=== PATIENT | male | born 1985 | race Caucasian/White ===

== ENCOUNTER → 2018-01-26 19:31 | Outpatient (CLI) | payer MEDICARE, OTHER, SELFPAY ==
[2018-01-26 20:28] LABS: Amphetamine/Metha Screen,Urine Negative ng/mL (<1000); Barbiturates Screen,Urine Negative ng/mL (<200); Benzodiazepines Screen,Urine Negative ng/mL (<200); Cannabinoid Screen,Urine Positive ng/mL (<50); Cocaine Screen,Urine Negative ng/mL (<300); Methadone Screen,Urine Negative ng/mL (<300); Opiate Screen,Urine Positive ng/mL (<300); Phencyclidine Screen,Urine Negative ng/mL (<25)
== END ==
PROVIDERS: Visit Provider Physician Assistant
DX: M54.2 Cervicalgia (principal)
CPT/HCPCS: 80305

== ENCOUNTER → 2018-05-24 09:01 | Outpatient (POV) | payer MEDICARE, OTHER, SELFPAY | PROVIDERS: Visit Provider Otolaryngology | DX: Z00.00 Encounter for general adult medical examination without abnormal findings (principal) ==

== ENCOUNTER → 2018-07-29 12:54 | Outpatient (CLI) | payer MEDICARE, OTHER, SELFPAY ==
--- NOTE | 2018-07-29 12:57 | MR_ITS ---
MR lumbar spine wo con, MR 3-d myelogram/MRCP HISTORY: Low back pain with right leg pain numbness and tingling ITS.REASON: low back pain ORDERING PHYSICIAN: Onel Luna APRN PATIENT AGE: 32 years Comparison: None TECHNIQUE: Standard multiplanar multiecho sequences are performed without contrast. 3-D MIP and myelographic images are also rendered and reviewed FINDINGS: There is normal alignment. The spinal cord ends at the T12-L1 level. L1-L2: Mild degenerative disc disease. Mild endplate irregularity. L2-L3: Unremarkable. L3-L4: Unremarkable. L4-L5: Mild degenerative disc disease with minimal bulging disc and mild facet and ligamentum flavum hypertrophy with mild bilateral foraminal narrowing. The disc bulges eccentric toward the left. L5-S1: Moderate to severe degenerative disc disease with bulging disc which is somewhat eccentric toward the left with disc osteophyte complex the foraminal regions with severe right-sided foraminal narrowing and moderate foraminal narrowing on the left. On the sagittal images there does appear to be some impingement upon the exiting right L5 nerve root. No extruded herniated disc. No fracture or dislocation. IMPRESSION: 1. L4-L5: Mild degenerative disc disease with minimal bulging disc and mild facet and ligamentum flavum hypertrophy with mild bilateral foraminal narrowing. The disc is eccentric toward the left. 2. L5-S1: Moderate to severe degenerative disc disease with bulging disc which is somewhat eccentric toward the left with disc osteophyte complex the foraminal regions with severe right-sided foraminal narrowing and moderate foraminal narrowing on the left. On the sagittal images there does appear to be some impingement upon the exiting right L5 nerve root. 3. No extruded herniated disc
--- NOTE | 2018-07-29 13:06 | XR_ITS ---
XR orbit bilateral min 4V HISTORY: History of metallic foreign body in the eyes. Clearance for MRI needed ITS.REASON: RULE OUT METAL FOREIGN BODY FOR MRI ORDERING PHYSICIAN: Onel Luna APRN PATIENT AGE: 32 years Comparison: None TECHNIQUE: AP views are obtained of the orbits with the patient looking up and down FINDINGS: No radio opaque foreign bodies evident. IMPRESSION: No radio opaque orbital foreign body identified
== END ==
PROVIDERS: PCP Physician Assistant; Visit Provider Nurse Practitioner Family
DX: M51.16 Intervertebral disc disorders with radiculopathy, lumbar region (principal); M54.5 Low back pain; H05.53 Retained (old) foreign body following penetrating wound of bilateral orbits
CPT/HCPCS: 70200; 72148; 76376

== ENCOUNTER → 2019-10-02 17:53 | Outpatient (CLI) | payer MEDICARE, OTHER, SELFPAY ==
[2019-10-02 19:31] LABS: Basophils # 0.1 K/mm3 (0-0.2); Basophils % 0.5 % (0.1-2.0); Eosinophils # 0.1 K/mm3 (0.0-0.4); Eosinophils % 1.4 % (0.1-12.0); Hematocrit 43.2 % (42.0-52.0); Hemoglobin 14.9 g/dL (14.1-18.0); Lymphocytes # 3.9 K/mm3 (0.7-4.5); Lymphocytes % 38.8 % (10-50); Mean Corpuscular HGB Conc 34.4 g/dL (31.8-35.4); Mean Corpuscular Hemoglobin 27.9 pg (27.0-31.2); Mean Corpuscular Volume 81.2 fl (80-94); Mean Platelet Volume 9.2 fl (7.4-10.4); Monocytes # 0.5 K/mm3 (0.1-1.0); Neutrophils # 5.4 K/mm3 (1.8-7.8); Neutrophils % 54.3 % (37.0-80.0); Platelet Count 378 K/mm3 (142-424); Red Blood Count 5.33 M/mm3 (4.60-6.20); Red Cell Distribution Width 16.3 % (11.5-17.5)
[2019-10-02 20:21] LABS: Chloride 111 mmol/L (98-107); Potassium 4.6 mmoL/L (3.5-5.1); Sodium 142 mmol/L (136-145)
[2019-10-02 20:24] LABS: Alanine Aminotransferase 38 U/L (12-78); Albumin Level 4.5 g/dl (3.5-5.0); Albumin/Globulin Ratio 1.9 (1.1-1.8); Alkaline Phosphatase 67 U/L (38-126); Anion Gap 15.6 mEq/L (5-15); Aspartate Amino Transferase 30 U/L (17-59); Bilirubin,Total 0.3 mg/dl (0.2-1.3); Blood Urea Nitrogen 5 mg/dl (9-20); Carbon Dioxide 20 mmol/L (22.0-30.0); Cholesterol 144 mg/dl (140-200); Estimated Glomerular Filt Rate 97 ml/min (>60); GFR (African American) 118 ML/MIN (>60); Globulin 2.4 g/dL (1.3-3.2); Total Protein,Serum 6.9 g/dl (6.3-8.2); Triglycerides 281 mg/dl (30-150); VLDL Cholesterol 56 mg/dL (0-40)
[2019-10-02 20:25] LABS: Calcium 10.7 mg/dl (8.4-10.2); Chol/HDL Ratio 5.5 (1-3.5); Glucose 94 mg/dl (74-100); HDL Cholesterol 26 mg/dl (40-60)
[2019-10-02 20:36] LABS: Direct LDL Cholesterol 81.06 mg/dL (100-129)
[2019-10-02 20:41] LABS: T4 (Thyroxine) 6.7 ug/dl (5.53-11.0)
[2019-10-02 20:55] LABS: Thyroid Stimulating Hormone 1.85 uIU/mL (0.465-4.68)
[2019-10-02 22:14] LABS: Hemoglobin A1C 5.5 % (4.0-6.0)
== END ==
PROVIDERS: Visit Provider Physician Assistant
DX: E11.9 Type 2 diabetes mellitus without complications (principal); M51.16 Intervertebral disc disorders with radiculopathy, lumbar region; M54.2 Cervicalgia; Z79.84 Long term (current) use of oral hypoglycemic drugs
CPT/HCPCS: 80053; 80061; 83036; 84436; 84443; 85025

== ENCOUNTER → 2020-02-21 17:34 | Outpatient (CLI) | payer MEDICARE, OTHER, SELFPAY ==
[2020-02-21 18:23] LABS: Erythrocyte Sedimentation Rate 3 mm/hr (0-15)
[2020-02-21 18:26] LABS: Basophils # 0.1 K/mm3 (0-0.2); Basophils % 0.7 % (0.1-2.0); Eosinophils # 0.1 K/mm3 (0.0-0.4); Eosinophils % 1.3 % (0.1-12.0); Hematocrit 46.3 % (42.0-52.0); Hemoglobin 15.5 g/dL (14.1-18.0); Lymphocytes # 3.5 K/mm3 (0.7-4.5); Mean Corpuscular HGB Conc 33.5 g/dL (31.8-35.4); Mean Corpuscular Volume 86.6 fl (80-94); Mean Platelet Volume 8.2 fl (7.4-10.4); Monocytes # 0.5 K/mm3 (0.1-1.0); Monocytes % 6.1 % (1.7-9.3); Platelet Count 430 K/mm3 (142-424); Red Blood Count 5.34 M/mm3 (4.60-6.20); Red Cell Distribution Width 14.7 % (11.5-17.5); White Blood Count 8.2 K/mm3 (4.8-10.8)
[2020-02-21 18:32] LABS: Chloride 108 mmol/L (98-107); Sodium 138 mmol/L (136-145)
[2020-02-21 18:33] LABS: Potassium 4.7 mmoL/L (3.5-5.1)
[2020-02-21 18:35] LABS: Alanine Aminotransferase 25 U/L (12-78); Albumin Level 4.7 g/dl (3.5-5.0); Albumin/Globulin Ratio 1.8 (1.1-1.8); Alkaline Phosphatase 60 U/L (38-126); Anion Gap 16.7 mEq/L (5-15); Aspartate Amino Transferase 28 U/L (17-59); Bilirubin,Total 0.4 mg/dl (0.2-1.3); Blood Urea Nitrogen 5 mg/dl (9-20); Calcium 10.3 mg/dl (8.4-10.2); Carbon Dioxide 18 mmol/L (22.0-30.0); Cholesterol 178 mg/dl (140-200); Estimated Glomerular Filt Rate 77 ml/min (>60); GFR (African American) 93 ML/MIN (>60); Globulin 2.6 g/dL (1.3-3.2); Glucose 80 mg/dl (74-100); Total Protein,Serum 7.3 g/dl (6.3-8.2); Triglycerides 313 mg/dl (30-150); VLDL Cholesterol 63 mg/dL (0-40)
[2020-02-21 18:36] LABS: Chol/HDL Ratio 5.6 (1-3.5); HDL Cholesterol 32 mg/dl (40-60)
[2020-02-21 18:42] LABS: C-Reactive Protein 1.8 mg/L (0-4)
[2020-02-21 18:47] LABS: Direct LDL Cholesterol 101.32 mg/dL (100-129)
[2020-02-21 19:01] LABS: Hemoglobin A1C 5.7 % (4.0-6.0)
[2020-02-24 00:19] LABS: RA Latex Turbid. <10.0 IU/mL (0.0-13.9)
[2020-02-26 12:14] LABS: Anti-Centromere B Antibodies <0.2 AI (0.0-0.9); Anti-Jo-1 <0.2 AI (0.0-0.9); Anti-Smith Antibody <0.2 AI (0.0-0.9); Antichromatin Antibodies <0.2 AI (0.0-0.9); Antiscleroderma-70 Antibodies <0.2 AI (0.0-0.9); RNP Antibodies <0.2 AI (0.0-0.9); Sjogren's Anti-SS-A <0.2 AI (0.0-0.9); Sjogren's Anti-SS-B <0.2 AI (0.0-0.9)
[2020-02-26 13:29] LABS: Anti-DNA (DS) Ab Qn <1 IU/mL (0-9)
[2020-02-27 10:23] LABS: Anti-Cyclic Citrullinated Pept 3 units (0-19)
== END ==
PROVIDERS: Visit Provider Physician Assistant
DX: E11.9 Type 2 diabetes mellitus without complications (principal); M54.2 Cervicalgia; Z79.84 Long term (current) use of oral hypoglycemic drugs
CPT/HCPCS: 80053; 80061; 83036; 84443; 85025; 85651; 86140; 86200; 86225; 86235; 86431

== ENCOUNTER → 2020-05-27 15:46 | Outpatient (CLI) | payer MEDICARE, OTHER, SELFPAY ==
[2020-05-27 16:23] LABS: Basophils # 0.1 K/mm3 (0-0.2); Basophils % 0.7 % (0.1-2.0); Eosinophils # 0.1 K/mm3 (0.0-0.4); Eosinophils % 1.2 % (0.1-12.0); Hematocrit 44.6 % (42.0-52.0); Hemoglobin 14.8 g/dL (14.1-18.0); Lymphocytes # 3.8 K/mm3 (0.7-4.5); Lymphocytes % 42.6 % (10-50); Mean Corpuscular HGB Conc 33.3 g/dL (31.8-35.4); Mean Corpuscular Hemoglobin 28.6 pg (27.0-31.2); Mean Corpuscular Volume 85.7 fl (80-94); Mean Platelet Volume 6.9 fl (7.4-10.4); Monocytes # 0.5 K/mm3 (0.1-1.0); Monocytes % 5.6 % (1.7-9.3); Neutrophils # 4.5 K/mm3 (1.8-7.8); Platelet Count 384 K/mm3 (142-424); Red Cell Distribution Width 14.4 % (11.5-17.5); White Blood Count 8.9 K/mm3 (4.8-10.8)
[2020-05-27 16:31] LABS: Hemoglobin A1C 5.4 % (4.0-6.0)
[2020-05-27 17:12] LABS: Alanine Aminotransferase 50 U/L (12-78); Albumin Level 4.7 g/dl (3.5-5.0); Alkaline Phosphatase 73 U/L (38-126); Anion Gap 14.4 mEq/L (5-15); Aspartate Amino Transferase 37 U/L (17-59); Bilirubin,Total 0.3 mg/dl (0.2-1.3); Blood Urea Nitrogen 6 mg/dl (9-20); Calcium 9.9 mg/dl (8.4-10.2); Carbon Dioxide 20 mmol/L (22.0-30.0); Chloride 109 mmol/L (98-107); Chol/HDL Ratio 6.9 (1-3.5); Cholesterol 179 mg/dl (140-200); Estimated Glomerular Filt Rate 86 ml/min (>60); GFR (African American) 103 ML/MIN (>60); Globulin 2.4 g/dL (1.3-3.2); Glucose 95 mg/dl (74-100); HDL Cholesterol 26 mg/dl (40-60); Potassium 4.4 mmoL/L (3.5-5.1); Sodium 139 mmol/L (136-145); Total Protein,Serum 7.1 g/dl (6.3-8.2)
[2020-05-27 17:22] LABS: Direct LDL Cholesterol 90.16 mg/dL (100-129)
[2020-05-27 17:23] LABS: Triglycerides 418 mg/dl (30-150)
[2020-05-27 17:30] LABS: 25-OH Vitamin D, Total 44.9 ng/mL (30-100)
[2020-05-27 17:31] LABS: T4 (Thyroxine) 6.7 ug/dl (5.53-11.0)
[2020-05-27 17:45] LABS: Thyroid Stimulating Hormone 1.81 uIU/mL (0.465-4.68)
[2020-05-27 18:09] LABS: Vitamin B12 > 1000 pg/mL (239-931)
[2020-05-29 17:22] LABS: H. pylori Breath Test Negative (Negative)
== END ==
PROVIDERS: Visit Provider Physician Assistant
DX: E11.9 Type 2 diabetes mellitus without complications (principal); R53.83 Other fatigue; M54.2 Cervicalgia; E55.9 Vitamin D deficiency, unspecified; Z79.84 Long term (current) use of oral hypoglycemic drugs
CPT/HCPCS: 36415; 80053; 80061; 82306; 82607; 83013; 83036; 84436; 84443; 85025

== ENCOUNTER → 2021-01-22 09:43 | Outpatient (CLI) | payer MEDICARE, OTHER, MEDICAID, SELFPAY ==
--- NOTE | 2021-01-22 09:59 | XR_ITS ---
PROCEDURE: XR CHEST PORTABLE CLINICAL HISTORY: COVID OUTPATIENT COMPARISON: CR CXR CHEST(2 VIEWS-NOT PORTABLE) from 01/09/2017 FINDINGS: The cardiomediastinal silhouette and pulmonary vascularity are within normal limits. The lungs are clear without infiltrates, suspicious nodules, or pleural effusions. There is a bone plate along the right clavicle IMPRESSION: No acute findings. Dictated by: Angelo Dumas MD 01/22/2021 11:39 Angelo Dumas MD in [facility] 01/22/2021 11:39
[2021-01-22 11:22] LABS: Basophils # 0.1 K/mm3 (0-0.2); Basophils % 0.7 % (0.1-2.0); Eosinophils # 0.2 K/mm3 (0.0-0.4); Eosinophils % 1.7 % (0.1-12.0); Hematocrit 40.4 % (42.0-52.0); Hemoglobin 13.8 g/dL (14.1-18.0); Lymphocytes # 4.2 K/mm3 (0.7-4.5); Lymphocytes % 41.5 % (10-50); Mean Corpuscular HGB Conc 34.2 g/dL (31.8-35.4); Mean Corpuscular Volume 84.8 fl (80-94); Mean Platelet Volume 8.4 fl (7.4-10.4); Monocytes # 0.7 K/mm3 (0.1-1.0); Monocytes % 6.7 % (1.7-9.3); Neutrophils # 4.9 K/mm3 (1.8-7.8); Neutrophils % 49.3 % (37.0-80.0); Platelet Count 469 K/mm3 (142-424); Red Blood Count 4.76 M/mm3 (4.60-6.20); Red Cell Distribution Width 15.8 % (11.5-17.5)
[2021-01-22 11:37] LABS: Chloride 108 mmol/L (98-107); Potassium 4.3 mmoL/L (3.5-5.1); Sodium 136 mmol/L (136-145)
[2021-01-22 11:40] LABS: Alanine Aminotransferase 25 U/L (12-78); Albumin Level 4.5 g/dl (3.5-5.0); Albumin/Globulin Ratio 1.9 (1.1-1.8); Alkaline Phosphatase 43 U/L (38-126); Anion Gap 14.3 mEq/L (5-15); Aspartate Amino Transferase 36 U/L (17-59); Bilirubin,Total 0.3 mg/dl (0.2-1.3); Blood Urea Nitrogen 18 mg/dl (9-20); Carbon Dioxide 18 mmol/L (22.0-30.0); Cholesterol 164 mg/dl (140-200); Estimated Glomerular Filt Rate 63 ml/min (>60); GFR (African American) 76 ML/MIN (>60); Globulin 2.4 g/dL (1.3-3.2); Total Protein,Serum 6.9 g/dl (6.3-8.2); Triglycerides 295 mg/dl (30-150); VLDL Cholesterol 59 mg/dL (0-40)
[2021-01-22 11:41] LABS: Calcium 9.5 mg/dl (8.4-10.2); Chol/HDL Ratio 8.2 (1-3.5); Glucose 89 mg/dl (74-100); HDL Cholesterol 20 mg/dl (40-60)
[2021-01-22 11:52] LABS: Direct LDL Cholesterol 99.22 mg/dL (100-129)
[2021-01-22 12:11] LABS: Thyroid Stimulating Hormone 3.39 uIU/mL (0.465-4.68)
== END ==
PROVIDERS: Psychiatry & Neurology Psychiatry; PCP Physician Assistant; Visit Provider Physician Assistant
DX: R09.89 Other specified symptoms and signs involving the circulatory and respiratory systems (principal); Z20.822 Contact with and (suspected) exposure to COVID-19; R05.9 Cough, unspecified; F31.9 Bipolar disorder, unspecified; Z79.899 Other long term (current) drug therapy
CPT/HCPCS: 36415; 71045; 80053; 80061; 83036; 84443; 85025; 87275; 87276; C9803; U0003; U0005

== ENCOUNTER → 2021-09-30 07:02 | Outpatient (CLI) | payer MEDICARE, OTHER, MEDICAID, SELFPAY ==
[2021-09-30 19:20] LABS: Basophils # 0.1 K/mm3 (0-0.2); Basophils % 1.4 % (0.1-2.0); Eosinophils # 0.1 K/mm3 (0.0-0.4); Eosinophils % 1.5 % (0.1-12.0); Hematocrit 41.4 % (42.0-52.0); Hemoglobin 12.9 g/dL (14.1-18.0); Lymphocytes # 3.6 K/mm3 (0.7-4.5); Lymphocytes % 45.7 % (10-50); Mean Corpuscular HGB Conc 31.3 g/dL (31.8-35.4); Mean Corpuscular Hemoglobin 29.7 pg (27.0-31.2); Mean Corpuscular Volume 94.9 fl (80-94); Monocytes # 0.5 K/mm3 (0.1-1.0); Monocytes % 6.7 % (1.7-9.3); Neutrophils # 3.6 K/mm3 (1.8-7.8); Neutrophils % 44.7 % (37.0-80.0); Platelet Count 486 K/mm3 (142-424); Red Blood Count 4.36 M/mm3 (4.60-6.20); Red Cell Distribution Width 16.1 % (11.5-17.5)
[2021-09-30 19:46] LABS: Hemoglobin A1C 4.9 % (4.0-6.0)
[2021-09-30 20:09] LABS: Alanine Aminotransferase 29 U/L (12-78); Albumin Level 4.3 g/dl (3.5-5.0); Albumin/Globulin Ratio 1.8 (1.1-1.8); Alkaline Phosphatase 53 U/L (38-126); Anion Gap 11.5 mEq/L (5-15); Aspartate Amino Transferase 43 U/L (17-59); Calcium 9.5 mg/dl (8.4-10.2); Carbon Dioxide 20 mmol/L (22.0-30.0); Chloride 108 mmol/L (98-107); Chol/HDL Ratio 17.6 (1-3.5); Cholesterol 141 mg/dl (140-200); Globulin 2.4 g/dL (1.3-3.2); Glucose 92 mg/dl (74-100); HDL Cholesterol 8 mg/dl (40-60); Potassium 4.5 mmoL/L (3.5-5.1); Sodium 135 mmol/L (136-145); Total Protein,Serum 6.7 g/dl (6.3-8.2); Triglycerides 244 mg/dl (30-150); VLDL Cholesterol 49 mg/dL (0-40)
[2021-09-30 20:11] LABS: Bilirubin,Total < 0.1 mg/dl (0.2-1.3)
[2021-09-30 20:40] LABS: Thyroid Stimulating Hormone 2.43 uIU/mL (0.465-4.68)
[2021-09-30 21:28] LABS: Vitamin B12 > 1000 pg/mL (239-931)
[2021-10-01 16:14] LABS: Blood Urea Nitrogen 11 mg/dl (9-20); Estimated Glomerular Filt Rate 58 ml/min (>60); GFR (African American) 70 ML/MIN (>60)
[2021-10-02 09:45] LABS: Direct LDL Cholesterol 77 mg/dL (100-129)
== END ==
PROVIDERS: PCP Physician Assistant; Visit Provider Physician Assistant
DX: M54.2 Cervicalgia (principal); E11.9 Type 2 diabetes mellitus without complications; Z79.84 Long term (current) use of oral hypoglycemic drugs
CPT/HCPCS: 80053; 80061; 82607; 83036; 84443; 85025

== ENCOUNTER → 2021-11-15 09:27 | Outpatient (CLI) | payer MEDICARE, OTHER, MEDICAID, SELFPAY ==
--- NOTE | 2021-11-15 09:36 | MR_ITS ---
FINAL REPORT TECHNIQUE: 3-D [id number] sequences without contrast CLINICAL HISTORY: Headaches with vision problems FINDINGS: The distal internal carotid arteries are unremarkable. MCAs and ACAs are unremarkable. Basilar artery is widely patent. it lead are intact. No aneurysm is seen. IMPRESSION: Unremarkable MRA head Reviewed, Interpreted and Dictated by Masood Humphrey MD Transcribed by Chalo Gonsales Authenticated and [facility]
--- NOTE | 2021-11-15 09:36 | MR_ITS ---
FINAL REPORT TECHNIQUE: Multiplanar MR without contrast CLINICAL HISTORY: chronic low back pain. hx of spurs. numbness tingling and pain radiates down bilateral extremities. COMPARISON: July 29, 2018 FINDINGS: Sagittal images show normal vertebral height. 3 mm retrolisthesis of L5 on S1. Alignment at the remaining levels is normal. Marrow signal pattern is unremarkable. Epidural lipomatosis. Mild motion artifact. L1-2: Unremarkable L2-3: Unremarkable L3-4: Mild annular disc bulge. L4-5: Mild annular disc bulge. Mild facet arthropathy. L5-S1: Moderate annular disc bulge. Mild facet arthropathy. Severe right and moderate left neural foraminal narrowing, stable. IMPRESSION: Degenerative disc disease as described. No change from prior. Reviewed, Interpreted and Dictated by Masood Humphrey MD Transcribed by Chalo Gonsales Authenticated and [facility]
== END ==
PROVIDERS: PCP Physician Assistant; Visit Provider Physician Assistant
DX: M51.16 Intervertebral disc disorders with radiculopathy, lumbar region (principal); H53.9 Unspecified visual disturbance; R07.9 Chest pain, unspecified
CPT/HCPCS: 70544; 72148; 76376

== ENCOUNTER → 2022-04-27 11:14 | Outpatient (CLI) | payer MEDICARE, OTHER, SELFPAY ==
--- NOTE | 2022-04-27 11:20 | XR_ITS ---
PROCEDURE INFORMATION: Exam: XR Left Foot Exam date and time: 04/27/2022 11:29 AM Age: 36 years old Clinical indication: Pain; Foot; Left; Additional info: Left ankle pain TECHNIQUE: Imaging protocol: Radiologic exam of the left foot. Views: 3 or more views. COMPARISON: No relevant prior studies available. FINDINGS: Bones/joints: No acute fracture or dislocation. Soft tissues: Normal. IMPRESSION: No acute osseous abnormality.
--- NOTE | 2022-04-27 11:20 | XR_ITS ---
PROCEDURE INFORMATION: Exam: XR Left Ankle Exam date and time: 04/27/2022 11:29 AM Age: 36 years old Clinical indication: Pain; Ankle; Left; Additional info: Left ankle pain TECHNIQUE: Imaging protocol: Radiologic exam of the left ankle. Views: 3 or more views. COMPARISON: No relevant prior studies available. FINDINGS: Bones/joints: No acute fracture or malalignment. Ankle mortise is intact. Soft tissues: Unremarkable. IMPRESSION: No acute osseous abnormality.
== END ==
PROVIDERS: PCP Physician Assistant; Visit Provider Physician Assistant
DX: M25.572 Pain in left ankle and joints of left foot (principal)
CPT/HCPCS: 73610; 73630

== ENCOUNTER 2022-04-27 11:47 | Outpatient (RCR) | payer MEDICARE, OTHER, SELFPAY | END 2022-04-27 13:00 | disposition home or self-care (01) | LOC: PT 11:47 | PROVIDERS: Visit Provider Physician Assistant | DX: S93.402A Sprain of unspecified ligament of left ankle, initial encounter (principal) | CPT/HCPCS: 97760 ==

== ENCOUNTER 2023-05-12 18:23 | Outpatient (CLI) | payer MEDICARE, OTHER, SELFPAY ==
[2023-05-12 18:43] LABS: Hemoglobin A1C 5.8 % (4.0-6.0)
[2023-05-12 18:45] LABS: Basophils # 0.1 K/mm3 (0-0.2); Basophils % 0.6 % (0.1-2.0); Eosinophils # 0.1 K/mm3 (0.0-0.4); Eosinophils % 0.5 % (0.1-12.0); Hematocrit 50.3 % (42.0-52.0); Hemoglobin 16.1 g/dL (14.1-18.0); Lymphocytes # 2.1 K/mm3 (0.7-4.5); Lymphocytes % 16.4 % (10-50); Mean Corpuscular HGB Conc 31.9 g/dL (31.8-35.4); Mean Corpuscular Hemoglobin 29.2 pg (27.0-31.2); Mean Corpuscular Volume 91.3 fl (80-94); Monocytes # 0.4 K/mm3 (0.1-1.0); Monocytes % 3.3 % (1.7-9.3); Neutrophils # 10.3 K/mm3 (1.8-7.8); Neutrophils % 79.2 % (37.0-80.0); Platelet Count 498 K/mm3 (142-424); Red Blood Count 5.51 M/mm3 (4.60-6.20); Red Cell Distribution Width 16.3 % (11.5-17.5)
[2023-05-12 18:49] LABS: Alanine Aminotransferase 26 U/L (12-78); Albumin Level 4.7 g/dl (3.5-5.0); Alkaline Phosphatase 55 U/L (38-126); Anion Gap 12.2 mEq/L (5-15); Aspartate Amino Transferase 30 U/L (17-59); Bilirubin,Total 0.4 mg/dl (0.2-1.3); Blood Urea Nitrogen 9 mg/dl (9-20); Calcium 10.1 mg/dl (8.4-10.2); Carbon Dioxide 23 mmol/L (22.0-30.0); Chloride 110 mmol/L (98-107); Chol/HDL Ratio 7.4 (1-3.5); Cholesterol 178 mg/dl (140-200); Estimated Glomerular Filt Rate 68 ml/min (>60); GFR (African American) 82 ML/MIN (>60); Globulin 2.3 g/dL (1.3-3.2); Glucose 93 mg/dl (74-100); HDL Cholesterol 24 mg/dl (40-60); Potassium 4.2 mmoL/L (3.5-5.1); Sodium 141 mmol/L (136-145); Triglycerides 244 mg/dl (30-150); VLDL Cholesterol 49 mg/dL (0-40)
[2023-05-12 19:00] LABS: Direct LDL Cholesterol 105.09 mg/dL (100-129)
[2023-05-12 19:17] LABS: Thyroid Stimulating Hormone 0.78 uIU/mL (0.465-4.68)
[2023-05-12 19:40] LABS: 25-OH Vitamin D, Total 47.3 ng/mL (30-100)
== END 2023-05-12 23:59 ==
LOC: LAB.DROPOF 18:23
PROVIDERS: PCP Physician Assistant; Visit Provider Physician Assistant
DX: E11.9 Type 2 diabetes mellitus without complications (principal); E55.9 Vitamin D deficiency, unspecified; Z68.37 Body mass index [BMI] 37.0-37.9, adult; Z79.84 Long term (current) use of oral hypoglycemic drugs
CPT/HCPCS: 80053; 80061; 82306; 83036; 84443; 85025

== ENCOUNTER 2023-06-17 13:33 | Outpatient (CLI) | payer MEDICARE, OTHER, SELFPAY | END 2023-06-17 23:59 | disposition home or self-care (01) | LOC: LAB.DROPOF 06-18 13:33 | PROVIDERS: PCP Physician Assistant; Visit Provider Physician Assistant | DX: R30.9 Painful micturition, unspecified (principal) | CPT/HCPCS: 87086 ==

== ENCOUNTER 2023-10-05 14:42 | Outpatient (CLI) | payer MEDICARE, OTHER, SELFPAY ==
--- NOTE | 2023-10-05 14:47 | XR_ITS ---
FINAL REPORT CLINICAL HISTORY: cough, rib pain FINDINGS: Two views of the chest were obtained. The heart size and pulmonary vascularity are within normal limits. The mediastinum is normal. No acute pulmonary abnormality is identified. There is no pneumothorax. There are postoperative changes in the right clavicle. IMPRESSION: No active cardiopulmonary disease. Reviewed, Interpreted and Dictated by Sukumar Carvalho III, MD Transcribed by Emily Mares Authenticated and [facility]
--- NOTE | 2023-10-05 14:47 | XR_ITS ---
FINAL REPORT CLINICAL HISTORY: cough, rib pain FINDINGS: RIBS UNILATERAL 2 VIEWS Six views of the left ribs were obtained. There is a left lateral 2nd rib fracture of uncertain age, favor subacute. There is mild irregularity of the left 4th lateral rib, favor subacute. There is also a fracture of the left 6th distal rib, likely acute. IMPRESSION: Fractures as above. Reviewed, Interpreted and Dictated by Sukumar Carvalho III, MD Transcribed by Emily Mares Authenticated and [facility]
== END 2023-10-05 23:59 | disposition home or self-care (01) ==
LOC: RAD 14:43
PROVIDERS: PCP Physician Assistant; Visit Provider Physician Assistant
DX: R05.9 Cough, unspecified (principal); R07.81 Pleurodynia
CPT/HCPCS: 71046; 71100

== ENCOUNTER 2024-07-03 11:07 | Emergency (ER) | payer MEDICARE, OTHER, SELFPAY ==
--- NOTE | 2024-07-03 11:20 | XR_ITS ---
PROCEDURE INFORMATION: Exam: XR Right Hand Exam date and time: 07/03/2024 12:20 PM Age: 38 years old Clinical indication: Pain; Hand; Right; Additional info: Infected wound, right 1st digit TECHNIQUE: Imaging protocol: Radiologic exam of the right hand. Views: 1 or 2 views. COMPARISON: No relevant prior studies available. FINDINGS: Bones/joints: There is mild deformity proximal shaft 4th metacarpal that is longstanding appears secondary to old healed fracture. Remaining osseous structures and joint surfaces are unremarkable. There are no osteolytic or destructive bone changes. No evidence of acute fracture. Soft tissues: There is soft tissue swelling adjacent to the 2nd PIP joint this should be correlated clinically. IMPRESSION: 1. No radiographic evidence of osteomyelitis. 2. Nonspecific soft tissue swelling 2nd PIP joint.
[2024-07-03] MEDS: ONDANSETRON 4MG/2ML VIAL 4 MG IV (11:30)
[2024-07-03 11:31] VITALS: BP 127/71; PULSE 85; RESP 18; TEMP 36.9; O2SAT 98; BMI 25.0
[2024-07-03 11:32] LABS: Basophils # 0.1 K/mm3 (0-0.2); Basophils % 0.8 % (0.1-2.0); Eosinophils # 0.1 Kmm3 (0.0-0.4); Eosinophils % 1.1 % (0.1-12.0); Hematocrit 35.2 % (42.0-52.0); Hemoglobin 12.2 g/dL (14.1-18.0); Immature Granulocytes # 0.03 10^3uL; Immature Granulocytes % 0.3 %; Lymphocytes # 2.6 K/mm3 (0.7-4.5); Lymphocytes % 26.6 % (10-50); Mean Corpuscular HGB Conc 34.7 g/dL (31.8-35.4); Mean Corpuscular Hemoglobin 28.8 pg (27.0-31.2); Mean Corpuscular Volume 83.2 fl (80-94); Mean Platelet Volume 8.6 fl (7.4-10.4); Monocytes # 0.9 K/mm3 (0.1-1.0); Monocytes % 8.8 % (1.7-9.3); Neutrophils # 6.1 K/mm3 (1.8-7.8); Neutrophils % 62.4 % (37.0-80.0); Nucleated Red Blood Cells # 0 10^3/uL; Nucleated Red Blood Cells % 0 %; Platelet Count 320 K/mm3 (142-424); Red Blood Count 4.23 M/mm3 (4.60-6.20); Red Cell Distribution Width 14.1 % (11.5-17.5); Red Cell Distribution Width-SD 42.9 fL; White Blood Count 9.7 K/mm3 (4.8-10.8)
[2024-07-03 11:41] LABS: Albumin Level 3.9 g/dl (3.5-5.0); Chloride 110 mmol/L (98-107)
[2024-07-03 11:42] LABS: Potassium 3.8 mmoL/L (3.5-5.1); Sodium 140 mmol/L (136-145)
[2024-07-03 11:44] LABS: Alanine Aminotransferase 38 U/L (12-78); Anion Gap 8.8 mEq/L (5-15); Aspartate Amino Transferase 34 U/L (17-59); Blood Urea Nitrogen 9 mg/dl (9-20); Carbon Dioxide 25 mmol/L (22.0-30.0); Creatinine Clearance Estimated 144 mL/min (50-200); Estimated Glomerular Filt Rate 108 ml/min (>60); GFR (African American) 131 ML/MIN (>60)
[2024-07-03 11:45] LABS: Albumin/Globulin Ratio 1.7 (1.1-1.8); Alkaline Phosphatase 68 U/L (38-126); Globulin 2.3 g/dL (1.3-3.2); Glucose 119 mg/dl (74-100); Total Protein,Serum 6.2 g/dl (6.3-8.2)
--- NOTE | 2024-07-03 11:47 | [facility].EDGENADL ---
Discharge Plan Disposition Patient Disposition: Home, Self-Care Prescriptions Prescriptions: New cephalexin 500 mg capsule 500 mg PO Q8H 10 Days Qty: 30 0RF sulfamethoxazole-trimethoprim 800-160 mg tablet 1 tab PO BID 10 Days Qty: 20 0RF No Action omega-3 fatty acids [Fish Oil Concentrate] 1,000 mg capsule 1,000 mg PO DAILY haloperidol 10 mg tablet 10 mg PO BID levetiracetam [Keppra] 500 mg tablet 500 mg PO Q12H benztropine 1 mg tablet 1 mg PO BID citalopram 40 mg tablet 40 mg PO DAILY Qty: 90 3RF clonidine HCl 0.2 mg tablet 0.2 mg PO QHS Qty: 90 3RF topiramate [Topamax] 100 mg tablet 200 mg PO DAILY 90 Days Qty: 180 3RF trazodone 150 mg tablet 150 mg PO HS hydroxyzine pamoate 50 mg capsule 100 mg PO meloxicam 15 mg tablet 15 mg PO DAILY Patient Comments: TAKE 1 TABLET BY MOUTH EVERY DAY sulfamethoxazole-trimethoprim [Bactrim DS] 800-160 mg tablet 1 tab PO BID 10 Days Qty: 20 0RF ondansetron 8 mg tablet,disintegrating 8 mg PO Q8H PRN (Reason: nausea and vomiting) Qty: 30 0RF lidocaine [Lidoderm] 5 % adhesive patch,medicated 1 patch topical DAILY Qty: 30 0RF Rx Instructions: leave on most painful area for up to 12 hrs (DME) Accu-Chek Sade Plus test strp Strip See Rx Instructions .ROUTE .MEDSUPPLY Qty: 50 2RF Rx Instructions: As directed (DME) lancets [Accu-Chek Softclix Lancets] Misc See Rx Instructions .ROUTE .MEDSUPPLY Qty: 100 2RF Rx Instructions: As directed esomeprazole magnesium 40 mg capsule,delayed release(DR/EC) See Rx Instructions .ROUTE .COMPLEX Qty: 90 3RF Dose Instruction: TAKE 1 CAPSULE BY MOUTH EVERY DAY Rx Instructions: TAKE 1 CAPSULE BY MOUTH EVERY DAY pregabalin [Lyrica] 75 mg capsule 75 mg PO BID Qty: 60 2RF fluticasone propionate 50 mcg/actuation spray,suspension See Rx Instructions .ROUTE .COMPLEX Qty: 48 3RF Dose Instruction: SPRAY 1 SPRAY INTO EACH NOSTRIL TWICE A DAY Rx Instructions: SPRAY 1 SPRAY INTO EACH NOSTRIL TWICE A DAY cetirizine 10 mg tablet See Rx Instructions .ROUTE .COMPLEX Qty: 90 3RF Dose Instruction: TAKE 1 TABLET BY MOUTH EVERY DAY Rx Instructions: TAKE 1 TABLET BY MOUTH EVERY DAY albuterol sulfate 1.25 mg/3 mL solution for nebulization See Rx Instructions .ROUTE .COMPLEX Qty: 75 4RF Dose Instruction: INHALE THE CONTENTS OF 1 VIAL EVERY 4 HOURS Rx Instructions: INHALE THE CONTENTS OF 1 VIAL EVERY 4 HOURS budesonide-formoterol [Symbicort] 160-4.5 mcg/actuation HFA aerosol inhaler See Rx Instructions .ROUTE .COMPLEX Qty: 10.2 11RF Dose Instruction: INHALE 2 PUFFS BY MOUTH TWICE A DAY Rx Instructions: INHALE 2 PUFFS BY MOUTH TWICE A DAY Linzess 145 mcg capsule See Rx Instructions .ROUTE .COMPLEX Qty: 90 3RF Dose Instruction: TAKE 1 CAPSULE BY MOUTH EVERY DAY Rx Instructions: TAKE 1 CAPSULE BY MOUTH EVERY DAY ropinirole 1 mg tablet See Rx Instructions .ROUTE .COMPLEX Qty: 90 3RF Dose Instruction: TAKE 1 TABLET BY MOUTH EVERY DAY Rx Instructions: TAKE 1 TABLET BY MOUTH EVERY DAY lisinopril 10 mg tablet See Rx Instructions .ROUTE .COMPLEX Qty: 90 3RF Dose Instruction: TAKE 1 TABLET BY MOUTH EVERY DAY Rx Instructions: TAKE 1 TABLET BY MOUTH EVERY DAY fenofibrate nanocrystallized 145 mg tablet See Rx Instructions .ROUTE .COMPLEX Qty: 90 3RF Dose Instruction: TAKE 1 TABLET BY MOUTH EVERY DAY Rx Instructions: TAKE 1 TABLET BY MOUTH EVERY DAY tizanidine 4 mg capsule See Rx Instructions .ROUTE .COMPLEX Qty: 60 0RF Dose Instruction: TAKE 1 CAPSULE BY MOUTH TWICE A DAY NEEDED FOR MUSCLE SPASTICITY Rx Instructions: TAKE 1 CAPSULE BY MOUTH TWICE A DAY NEEDED FOR MUSCLE SPASTICITY omeprazole 40 mg capsule,delayed release(DR/EC) See Rx Instructions .ROUTE .COMPLEX Qty: 90 3RF Dose Instruction: TAKE 1 CAPSULE BY MOUTH ONCE DAILY SWALLOW WHOLE DO NOT CRUSH, CHEW, DISSOLVE, CUT, BREAK Rx Instructions: TAKE 1 CAPSULE BY MOUTH ONCE DAILY SWALLOW WHOLE DO NOT CRUSH, CHEW, DISSOLVE, CUT, BREAK tamsulosin 0.4 mg capsule See Rx Instructions .ROUTE .COMPLEX Qty: 90 0RF Dose Instruction: TAKE 1 CAPSULE BY MOUTH EVERY DAY Rx Instructions: TAKE 1 CAPSULE BY MOUTH EVERY DAY dexlansoprazole 60 mg capsule,biphase delayed releas See Rx Instructions .ROUTE .COMPLEX Qty: 90 3RF Dose Instruction: TAKE 1 CAPSULE BY MOUTH EVERY DAY Rx Instructions: TAKE 1 CAPSULE BY MOUTH EVERY DAY atorvastatin 20 mg tablet See Rx Instructions .ROUTE .COMPLEX Qty: 90 0RF Dose Instruction: TAKE 1 TABLET BY MOUTH EVERY DAY NIGHTLY Rx Instructions: TAKE 1 TABLET BY MOUTH EVERY DAY NIGHTLY promethazine-DM 6.25-15 mg/5 mL syrup 5 ml PO Q6H PRN (Reason: cough) Qty: 180 0RF Mounjaro 5 mg/0.5 mL pen injector See Rx Instructions .ROUTE .COMPLEX Qty: 2 2RF Dose Instruction: INJECT 5 MG SUBCUTANEOUSLY WEEKLY Rx Instructions: INJECT 5 MG SUBCUTANEOUSLY WEEKLY mupirocin calcium 2 % cream 1 applic topical TID Qty: 30 0RF sennosides-docusate sodium [Senna Plus] 8.6-50 mg tablet See Rx Instructions .ROUTE .COMPLEX Qty: 180 3RF Dose Instruction: TAKE 1 TABLET BY MOUTH TWICE A DAY FOR CONSTIPATION Rx Instructions: TAKE 1 TABLET BY MOUTH TWICE A DAY FOR CONSTIPATION tramadol 50 mg tablet 50 mg PO Q8H PRN (Reason: pain) Qty: 30 0RF albuterol sulfate [Ventolin HFA] 90 mcg/actuation HFA aerosol inhaler See Rx Instructions .ROUTE .COMPLEX Qty: 18 11RF Dose Instruction: INHALE 2 PUFFS EVERY 4-6 HOURS NEEDED FOR SHORTNESS OF BREATH OR WHEEZING Rx Instructions: INHALE 2 PUFFS EVERY 4-6 HOURS NEEDED FOR SHORTNESS OF BREATH OR WHEEZING Referrals Follow up/Referrals: Geraldine Reddy PA [Primary Care Provider] - See instructions Activity Restrictions/Add. Instructions Additional Instructions/Restrictions: Take the Bactrim and Keflex for 10 days as prescribed. Follow-up with your primary care physician in 3 days for reassessment. You can take Tylenol and ibuprofen to help with pain. If you develop any new or worsening symptoms, such as fever, increased redness or swelling, inability to move the finger without significant pain, or if you become concerned for your health for any reason, return to the emergency department for evaluation Clinical Impressions Clinical Impression: Wound infection Print Language Print Language: Cambodian Discharge ED Provider: Rob Robin Adult HPI General Chief complaint: Wound/Laceration Stated complaint: AO 06/30/24 R cut on finger. Stitches came out Time Seen by Provider: 07/03/24 11:12 Mode of Arrival: Ambulatory Source of Information: Patient Description of Symptoms (Recalled from ER Triage Doc. by RN): PT WITH LACERATION TO RIGTH INDEX FINGER FROM 06/30. WOUND RED, PAINFUL AND SWOLLEN History of Present Illness HPI narrative: Felix Wagner is a 38y male with a history of type 2 diabetes, GERD who presents to the emergency department for complaints of possible infected wound to his right finger. Patient is here with mom who provides most of the history. She states that he had a retractable knife close up on his right second digit 1.5 weeks ago and was seen at [place] emergency department at that time and they closed it with sutures. Over the last 2 to 3 days, it has become red and swollen and painful. He tried to remove some sutures to help it drain, however this was unsuccessful. He denies any fevers. He is not currently on antibiotics. Related Data Home Medications ?Medication ?Instructions ?Recorded ?Confirmed benztropine 1 mg tablet 1 mg PO BID 04/07/17 10/29/23 haloperidol 10 mg tablet 10 mg PO BID 04/07/17 10/29/23 levetiracetam 500 mg tablet 500 mg PO Q12H 04/07/17 10/29/23 (Keppra) omega-3 fatty acids 1,000 mg 1,000 mg PO DAILY 04/07/17 10/29/23 capsule (Fish Oil Concentrate) hydroxyzine pamoate 50 mg capsule 100 mg PO 04/27/22 10/29/23 trazodone 150 mg tablet 150 mg PO HS 04/27/22 10/29/23 meloxicam 15 mg tablet 15 mg PO DAILY 01/12/23 10/29/23 Previous Rx's ?Medication ?Instructions ?Recorded blood sugar diagnostic (Accu-Chek #50 ea 05/27/20 Sade Plus test strips) lancets (Accu-Chek Softclix #100 ea 05/27/20 Lancets) citalopram 40 mg tablet 40 mg PO DAILY #90 tabs 01/22/21 clonidine HCl 0.2 mg tablet 0.2 mg PO QHS #90 tabs 01/22/21 topiramate 100 mg tablet (Topamax) 200 mg (2 x 100 mg) PO DAILY 90 01/22/21 days #180 tabs esomeprazole magnesium 40 mg See Rx Instructions .Route 06/16/21 capsule,delayed release .COMPLEX #90 caps cetirizine 10 mg tablet See Rx Instructions .Route 09/15/21 .COMPLEX #90 tabs albuterol sulfate 1.25 mg/3 mL See Rx Instructions .Route 11/07/21 solution for nebulization .COMPLEX #75 mL budesonide-formoterol HFA 160 See Rx Instructions .Route 07/06/22 mcg-4.5 mcg/actuation aerosol .COMPLEX #10.2 ea inhaler (Symbicort) linaclotide 145 mcg capsule See Rx Instructions .Route 10/01/22 (Linzess) .COMPLEX #90 caps ropinirole 1 mg tablet See Rx Instructions .Route 04/01/23 .COMPLEX #90 tabs fenofibrate nanocrystallized 145 See Rx Instructions .Route 04/12/23 mg tablet .COMPLEX #90 tabs lisinopril 10 mg tablet See Rx Instructions .Route 04/12/23 .COMPLEX #90 tabs tizanidine 4 mg capsule See Rx Instructions .Route 04/12/23 .COMPLEX #60 caps pregabalin 75 mg capsule (Lyrica) 75 mg PO BID #60 caps 05/12/23 fluticasone propionate 50 See Rx Instructions .Route 06/17/23 mcg/actuation nasal .COMPLEX #48 mL spray,suspension omeprazole 40 mg capsule,delayed See Rx Instructions .Route 07/12/23 release .COMPLEX #90 caps tamsulosin 0.4 mg capsule See Rx Instructions .Route 08/16/23 .COMPLEX #90 caps dexlansoprazole 60 mg See Rx Instructions .Route 08/30/23 capsule,biphase delayed release .COMPLEX #90 caps atorvastatin 20 mg tablet See Rx Instructions .Route 09/20/23 .COMPLEX #90 tabs promethazine-DM 6.25 mg-15 mg/5 mL 5 ml PO Q6H PRN cough #180 mL 10/07/23 oral syrup tirzepatide 5 mg/0.5 mL See Rx Instructions .Route 10/28/23 subcutaneous pen injector .COMPLEX #2 mL (Mounjaro) lidocaine 5 % topical patch 1 patch topical DAILY #30 ea 10/29/23 (Lidoderm) ondansetron 8 mg disintegrating 8 mg PO Q8H PRN nausea and 10/29/23 tablet vomiting #30 tabs sulfamethoxazole 800 1 tab PO BID 10 days #20 tabs 10/29/23 mg-trimethoprim 160 mg tablet (Bactrim DS) Ventolin HFA 90 mcg/actuation See Rx Instructions .Route 11/17/23 aerosol inhaler (albuterol sulfate) .COMPLEX #18 grams mupirocin calcium 2 % topical cream 1 applic topical TID #30 grams 11/17/23 sennosides 8.6 mg-docusate sodium See Rx Instructions .Route 11/17/23 50 mg tablet (Senna Plus) .COMPLEX #180 tabs tramadol 50 mg tablet 50 mg PO Q8H PRN pain #30 tabs 11/17/23 cephalexin 500 mg capsule 500 mg PO Q8H 10 days #30 caps 07/03/24 sulfamethoxazole 800 1 tab PO BID 10 days #20 tabs 07/03/24 mg-trimethoprim 160 mg tablet Allergies Allergy/AdvReac Type Severity Reaction Status Date / Time acetaminophen (From LORTAB) Allergy Unknown NA-NAUSEA/V Verified 10/29/23 14:28 OMITING hydrocodone (From LORTAB) Allergy Unknown NA-NAUSEA/V Verified 10/29/23 14:28 OMITING mushroom (From MUSHROOMS Allergy Unknown I-HIVES Verified 10/29/23 14:28 (FOOD/DRUG)) clindamycin AdvReac Hives Verified 10/29/23 14:28 From MUSHROOMS (FOOD/DRUG) Allergy Unknown I-HIVES Uncoded 10/29/23 14:28 [facility] Disclaimer: The information contained in this section may have been updated after the patient was seen, as this information can be updated by other users. Medical History Chest pain Neck pain GERD (gastroesophageal reflux disease) Diabetes mellitus Type 2 diabetes mellitus Lumbar disc disease with radiculopathy Social History Smoking Status: Current every day smoker tobacco type: cigarettes packs per day: 1 alcohol intake: never substance use type: denies use current occupational status: unemployed Travel in the last 8 weeks?: None Have you lived/traveled outside [place] in past 30 days?: No Contact w/someone who lives/traveled outside US past 30 days?: No Exposure to someone with infectious disease in past 14 days?: No Do you have a fever (greater than 100.4 F or 38 C)?: No Have you tested positive for COVID-19?: No Exposed to someone with COVID-19 in past 14 days?: No Do you have a sore throat?: No Do you have a cough?: No Do you have any weakness?: No Do you have any diarrhea?: No Are you experiencing any unusual bleeding?: No Do you have any muscle aches/pain?: No Do you have any abdominal pain?: No Are you experiencing loss of taste or smell?: No Other Medical History Have you received the Flu Vaccine for this season: No Have you received the Pneumonia Vaccine: No ROS Obtained: Yes Systems reviewed as appropriate & no additional complaints except as documented Physical Exam General General appearance: alert and in no apparent distress Head Head exam: atraumatic Eye Eye exam: Present normal appearance ENT ENT exam: Present normal external ear exam Neck Neck exam: Present full ROM Chest Chest inspection: Present symmetric chest wall rise Respiratory Respiratory exam: Present normal lung sounds bilaterally; Absent respiratory distress Cardiovascular Cardiovascular exam: Present regular rate and normal rhythm Abdominal Exam Abdominal exam: Present soft; Absent tenderness or guarding exam: Present deferred Extremities Exam Extremities exam: Present normal inspection Back Exam Back exam: Present normal inspection Neurological Exam Neurological exam: Present alert and oriented X3 Psychiatric Psychiatric exam: Present normal affect Skin Skin exam: Present warm, dry and other (Right second PIP is erythematous, swollen. Laceration to the area that was previously repaired with sutures. [address] No pus draining from the wound. Full range of motion of the finger) Medical Decision Making Medical Records Screening: Per USPSTF and CDC recommendations, given the prevalence of disease in our region, it is our hospital?s policy to screen for HIV and viral Hepatitis for all patients aged 18 and over and those with ongoing risk factors. [place] Inquiry Pt receiving controlled substance: No Vital Signs: 07/03/24 11:31 07/03/24 13:14 Temperature 98.5 F Temperature Source Oral Pulse Rate 71 Pulse Rate [Radial] 85 Respiratory Rate 18 Blood Pressure 131/78 Blood Pressure [Left Arm] 127/71 Blood Pressure Mean [Left Arm] 89 Blood Pressure Source [Left Arm] Automatic Cuff Blood Pressure Position [Left Arm] Sitting 02 Sat by Pulse Oximetry 98 99 Oxygen Delivery Method Room Air Room Air Lab Data Lab Results 07/03/24 11:25: WBC 9.7, RBC 4.23 L, Hgb 12.2 L, Hct 35.2 L, MCV 83.2, MCH 28.8, MCHC 34.7, RDW 14.1, Plt Count 320, MPV 8.6, Neut % (Auto) 62.4, Lymph % (Auto) 26.6, [place] % (Auto) 8.8, Eos % (Auto) 1.1, Baso % (Auto) 0.8, Neut # (Auto) 6.1, Lymph # (Auto) 2.6, [place] # (Auto) 0.9, Eos # (Auto) 0.1, Baso # (Auto) 0.1, ESR 17 H, Sodium 140, Potassium 3.8, Chloride 110 H, Carbon Dioxide 25, Anion Gap 8.8, BUN 9, Creatinine 0.80, Estimated Creat Clear 144, Estimated GFR 108, Est GFR ( Amer) 131, Glucose 119 H, Calcium 9.0, Total Bilirubin 0.1 L, AST 34, ALT 38, Alkaline Phosphatase 68, C-Reactive Protein 26.8 H, Total Protein 6.2 L, Albumin 3.9, Globulin 2.3, Albumin/Globulin Ratio 1.7 07/03/24 11:25 07/03/24 11:25 Orders (Tests/Meds): ED MEDICATIONS Discontinued Medications Generic Name Dose Route Start Last Admin Trade Name Freq PRN Reason Stop Dose Admin Ibuprofen 600 mg 07/03/24 11:20 07/03/24 11:35 Ibuprofen 600 Mg Tablet PO 07/03/24 11:21 Not Given ONCE ONE Ondansetron HCl 4 mg 07/03/24 11:21 07/03/24 11:30 Ondansetron 4mg/2ml Vial IV 07/03/24 11:22 4 mg ONCE ONE Administration ORDERS Category Date Time Status Hand XR right 2 views [XR hand RT 2V] Stat Exams 07/03/24 11:20 Taken POCUS Point of Care (ER Only) Stat Exams 07/03/24 11:22 Completed CBC w/Auto Diff [Complete Blood Count Auto Diff] Stat Lab 07/03/24 11:25 Completed CMP [Comprehensive Metabolic Panel] Stat Lab 07/03/24 11:25 Completed CRP [C-Reactive Protein] Stat Lab 07/03/24 11:25 Completed ESR [Erythrocyte Sedimentation Rate] Stat Lab 07/03/24 11:25 Completed HIV Combo Stat Lab 07/03/24 11:25 Received Hepatitis C Ab Qual. W/ RFX Stat Lab 07/03/24 11:25 Received Medical Decision Narrative: Felix Wagner is a 38y male with a history of type 2 diabetes, GERD who presents to the emergency department for complaints of possible infected wound to his right finger. Patient is here with mom who provides most of the history. She states that he had a retractable knife close up on his right second digit 1.5 weeks ago and was seen at [place] emergency department at that time and they closed it with sutures. Over the last 2 to 3 days, it has become red and swollen and painful. He tried to remove some sutures to help it drain, however this was unsuccessful. He denies any fevers. He is not currently on antibiotics. On arrival, patient is afebrile, normotensive, heart rate within normal limits, breathing comfortably on room air with appropriate oxygen saturation. Physical exam, stated above, revealed an overall well-appearing male in no distress. He has swelling, erythema and some tenderness over the right second PIP on the lateral aspect. Full range of motion of the finger in all joint spaces. No flexor tendon tenderness. 2+ radial pulses. Differential diagnosis includes, but is not limited to: Cellulitis, abscess, wound infection, extensor tenosynovitis, sepsis, among others. Patient's workup in the emergency department included: [id number] soft tissue ultrasound, hand x-ray, ESR, CRP, CBC, CMP. Patient reported that he was not currently in pain and had taken ibuprofen prior to arrival. X-ray interpreted by me personally. Evidence of soft tissue swelling over the PIP but no bony erosion or periosteal thickening. Low concern for osteomyelitis at this time. Laboratory studies showed no leukocytosis. Inflammatory markers mildly elevated. Labs otherwise unremarkable nonactionable. Bedside ultrasound performed by me demonstrated no abscess but there is cobblestoning above the joint space consistent with cellulitis. See procedure note for details. Patient's 1 remaining suture was removed by me using sterile scissors. Is felt the patient is appropriate for discharge at this time with close follow with his primary care physician and antibiotics. Patient is being discharged on a prescription for Keflex and Bactrim. He was also instructed to take Tylenol and ibuprofen for pain. He was given strict return precautions for any fever, worsening redness or swelling, or worsening range of motion. Patient was then discharged from the emergency department Procedures Limited Ultrasound Indication:: right finger wound/swelling/redness Interpretation:: Limited MSK/soft tissue ultrasound Indication: Soft tissue swelling in the right second digit at the PIP with redness and erythema Identified structures: Location: Right second digit PIP Findings: -Cellulitis, no abscess isappreciated Impression: Cellulitis of soft tissue Images were saved to permanent archive The study was technically adequate Soft Tissue CPT Codes: CPT Upper extremity: 59243-35 This study was performed by me, and I personally interpreted all images/videos. Based on my clinical judgement, these images were adequate/inadequate and did/did not necessitate further imaging. Critical Care Critical Care Time Critical Care Time: No
[2024-07-03 11:48] LABS: Bilirubin,Total 0.1 mg/dl (0.2-1.3)
[2024-07-03 11:50] LABS: C-Reactive Protein 26.8 mg/L (0-4)
[2024-07-03 12:11] LABS: Erythrocyte Sedimentation Rate 17 mm/hr (0-15)
[2024-07-03 13:14] VITALS: BP 131/78; PULSE 71; O2SAT 99
[2024-07-03 13:50] VITALS: BP 132/74; PULSE 72; RESP 18; TEMP 36.8; O2SAT 98
[2024-07-03 15:13] LABS: HIV Combo NEGATIVE (Negative)
[2024-07-03 15:21] LABS: Hepatitis C Ab Qual. W/ RFX NEGATIVE (Negative)
== END 2024-07-03 13:50 | disposition home or self-care (01) ==
PROVIDERS: Emergency Provider Student in an Organized Health Care Education/Training Program; PCP Physician Assistant
DX: L03.011 Cellulitis of right finger (principal); Z11.59 Encounter for screening for other viral diseases; Z11.4 Encounter for screening for human immunodeficiency virus [HIV]
CPT/HCPCS: 73120; 80053; 85025; 85651; 86140; 86803; 87389; 96374; 99284; J2405